=== PATIENT | female | born 1995 | race Caucasian/White ===

== ENCOUNTER 2016-11-12 10:05 | Emergency (ER) | payer MEDICAID, OTHER ==
[~2016-11-12] VITALS: Ht 162.6 cm; Wt 61.0 kg
[2016-11-12] MEDS ORDERED: SODIUM CHLORIDE 0.9% 1,000 ML IV ONE (10:22)
[2016-11-12] MEDS ORDERED: LEVETIRACETAM 500MG TABLET PO ONE (10:30)
[2016-11-12 10:44] LABS: BASOPHILS % 1.1 % (0.0-2.0); EOSINOPHILS % 1.3 % (0.0-5.0); HEMOGLOBIN. 11.5 g/dL (12.0-16.0); LYMPHOCYTES % 18.3 % (20.0-50.0); MEAN CORPUSCULAR HEMOGLOBIN 27.4 pg (28.0-32.0); MEAN CORPUSCULAR VOLUME 83.4 fL (81.0-99.0); MEAN PLATELET VOLUME 9.7 fl (7.4-10.4); MONOCYTES % 5.9 % (2.0-8.0); NEUTROPHILS % 73.4 % (40.0-76.0); PLATELET 239 x1000/uL (130-400); RED BLOOD CELL COUNT 4.19 mill/uL (4.2-5.4); RED CELL DISTRIBUTION WIDTH 15.7 % (11.6-14.6)
[2016-11-12 10:53] LABS: INR 1.1; PARTIAL THROMBOPLASTIN TIME 27.1 sec (24.0-34.0); PROTHROMBIN TIME 10.9 sec
[2016-11-12 10:54] LABS: CARBON DIOXIDE 26 mEq/L (21-32); CHLORIDE 109 mEq/L (98-107)
[2016-11-12 10:58] LABS: CREATINE KINASE 93 IU/L (26-192)
[2016-11-12 11:12] LABS: HCG SCREEN POSITIVE
[2016-11-12 12:01] VITALS: BP 102/72
== END 2016-11-12 13:03 | disposition left against medical advice (07) ==
LOC: ER 10:20
DX: G40.909 Epilepsy, unspecified, not intractable, without status epilepticus (principal); S00.83XA Contusion of other part of head, initial encounter; D64.9 Anemia, unspecified; M54.2 Cervicalgia; E87.8 Other disorders of electrolyte and fluid balance, not elsewhere classified; Z91.14 Patient's other noncompliance with medication regimen; R04.0 Epistaxis; X58.XXXA Exposure to other specified factors, initial encounter; Y93.89 Activity, other specified; Y92.89 Other specified places as the place of occurrence of the external cause
CPT/HCPCS: 36415; 80048; 82550; 84702; 84703; 85025; 85610; 85730; 96360; 99291; J7030; Z7610

== ENCOUNTER 2017-03-30 18:29 | Inpatient (IN) | payer MEDICAID ==
[~2017-03-30] VITALS: Ht 160 cm; Wt 66.0 kg
[2017-03-30] MEDS ORDERED: LORAZEPAM 2MG/ML CPJ ONE (18:47)
[2017-03-30] MEDS ORDERED: LORAZEPAM 2MG/ML CPJ IV ONE (19:00)
[2017-03-30] MEDS ORDERED: LEVETIRACETAM 5MG/ML SYR IV ONE (19:00)
[2017-03-30] MEDS ORDERED: LEVETIRACETAM 1,000 MG in SODIUM CHLORIDE 0.9% 100 ML IV NR (19:15)
[2017-03-30 19:28] LABS: BASOPHILS % 0.9 % (0.0-2.0); EOSINOPHILS % 2.7 % (0.0-5.0); HEMATOCRIT. 39.3 % (36.0-48.0); HEMOGLOBIN. 12.7 g/dL (12.0-16.0); LYMPHOCYTES % 31.6 % (20.0-50.0); MEAN CORPUSCULAR HEMOGLOBIN 26.7 pg (28.0-32.0); MEAN CORPUSCULAR VOLUME 82.3 fL (81.0-99.0); MONOCYTES % 7.7 % (2.0-8.0); NEUTROPHILS % 57.1 % (40.0-76.0); PLATELET 176 x1000/uL (130-400); RED BLOOD CELL COUNT 4.78 mill/uL (4.2-5.4); RED CELL DISTRIBUTION WIDTH 15.4 % (11.6-14.6)
[2017-03-30 19:37] LABS: CARBON DIOXIDE 27 mEq/L (21-32); CHLORIDE 107 mEq/L (98-107)
[2017-03-30 19:45] LABS: HCG SCREEN NEGATIVE
[2017-03-30 21:57] LABS: *AMPHETAMINES SCREEN URINE NEGATIVE (NEGATIVE); *BARBITURATES SCREEN URINE NEGATIVE (NEGATIVE); *BENZODIAZEPINES SCREEN URINE NEGATIVE (NEGATIVE); *COCAINE SCREEN URINE NEGATIVE (NEGATIVE); CANNABINOID URINE SCREEN NEGATIVE (NEGATIVE); METHADONE URINE SCREEN NEGATIVE (NEGATIVE); OPIATES URINE SCREEN NEGATIVE (NEGATIVE); PHENCYCLIDINE URINE SCREEN NEGATIVE (NEGATIVE)
[2017-03-30] MEDS ORDERED: DOCUSATE SODIUM 100MG CAPSULE PO PRN (23:15)
[2017-03-30] MEDS ORDERED: KETOROLAC 15MG/ML VIAL IV PRN (23:15)
[2017-03-30] MEDS ORDERED: ONDANSETRON HCL 4MG/2ML VIAL IV PRN (23:15)
[2017-03-30] MEDS ORDERED: DIPHENHYDRAMINE 50MG/ML VIAL IV PRN (23:15)
[2017-03-30] MEDS ORDERED: ACETAMINOPHEN 325MG TABLET PO PRN (23:15)
[2017-03-30] MEDS ORDERED: CLONIDINE 0.1MG TABLET PO PRN (23:15)
[2017-03-30] MEDS ORDERED: MAGNESIUM/ALUMINUM HYDROXIDE/SIMETHICONE 30ML UDC PO PRN (23:15)
[2017-03-30] MEDS ORDERED: IPRATROPIUM/ALBUTEROL 0.5-3(2.5)MG/3ML NEB INH PRN (23:15)
[2017-03-30] MEDS ORDERED: LORAZEPAM 2MG/ML CPJ IV PRN (23:15)
[2017-03-30] MEDS ORDERED: ZOLPIDEM TARTRATE 5MG TABLET PO PRN (23:44)
[2017-03-30] MEDS ORDERED: NA PHOS,M-B/NA PHOS,DI-BA ENEMA 118ML PR PRN (23:45)
[2017-03-31] MEDS ORDERED: MIDAZOLAM HCL 2 MG/2 ML VIAL IV ONE (05:15)
[2017-03-31] MEDS ORDERED: MIDAZOLAM HCL 2 MG/2 ML VIAL ONE (05:20)
[2017-03-31 08:00] VITALS: BP 90/51
[2017-03-31 08:55] VITALS: BP 98/42
[2017-03-31] MEDS ORDERED: FAMOTIDINE 20MG/2ML VIAL IV SCH (09:00)
[2017-03-31] MEDS ORDERED: LEVETIRACETAM 500MG TABLET PO SCH (09:00)
[2017-03-31] MEDS ORDERED: LEVE1000 PO (09:24)
[2017-03-31] MEDS ORDERED: DIVA500T3 PO (09:24)
[2017-03-31 10:51] VITALS: BP 95/42
== END 2017-03-31 11:05 | disposition home or self-care (01) | DRG 53 ==
LOC: ER 19:11 → 7WST 23:17 → ENRESERV 03-31 07:27
PROVIDERS: ADMIT Internal Medicine; ATTEND Internal Medicine
DX: G40.901 Epilepsy, unspecified, not intractable, with status epilepticus (principal); Z79.899 Other long term (current) drug therapy
CPT/HCPCS: 36415; 70450; 80053; 80305; 82962; 83036; 84703; 85025; 96365; 96375; 99285; J1953; J2060; J2250; J7050